=== PATIENT | male | born 1960 | race Caucasian/White ===

== ENCOUNTER 2017-07-24 05:32 | Emergency (ER) | payer SELFPAY ==
[2017-07-24] MEDS ORDERED: predniSONE 20 MG TAB ONE (07:26)
[2017-07-24] MEDS ORDERED: Azithromycin 250 MG TAB ONE (07:26)
--- NOTE | 2017-07-24 08:03 | RAD ---
RADIOGRAPH CHEST 2 VIEWS: HISTORY: A 57-year-old male with dyspnea and cough. FINDINGS: The thoracic aorta is tortuous and ectatic. There is no evidence of air space density, pneumothorax, or pulmonary edema. There is no cardiomegaly or pleural effusion. Inspiration is shallow. There i s a large amount of gas with air fluid level distending the stomach. IMPRESSION: 1) No acute cardiopulmonary findings. 2) Ectasia of thoracic aorta. 3) Gastric distention. maximiliano [] POS: [facility]
== END 2017-07-24 08:12 | disposition home or self-care (01) ==
LOC: ERS 05:32
DX: J40 Bronchitis, not specified as acute or chronic (principal); I10 Essential (primary) hypertension; F41.9 Anxiety disorder, unspecified; F17.210 Nicotine dependence, cigarettes, uncomplicated
CPT/HCPCS: 71046; 87081; 87430; 87804; 99406; J7506; J7620

== ENCOUNTER 2017-07-24 12:30 | Observation (INO) | payer SELFPAY ==
[~2017-07-24 12:30] MED LIST: ISOVUE-370 76%-LOCM 1 ML ONE
[2017-07-24 13:38] LABS: #Lymphocytes 0.5 thou/uL (1.20-3.40); #Monocytes 0.3 thou/uL (0.11-0.59); #Neutrophils 8.3 thou/uL (1.40-6.50); %Basophils 0.1 % (0.0-1.0); %Eosinophils 0.2 % (0.0-10.0); %Monocytes 3.5 % (0.0-10.0); %Neutrophils 91.3 % (42.0-75.0); Hemoglobin 15.9 g/dL (14.0-18.0); Mean Corpuscular HGB CONC 34.5 g/dL (32.0-36.0); Mean Corpuscular Hemoglobin 31.7 pg (27.0-31.0); Mean Platelet Volume 7.3 fL (7.4-10.4); Platelet Count 181 thou/uL (130-400); Red Blood Cell (RBC) Count 5.01 mill/uL (4.70-6.10); White Blood Cell (WBC) Count 9.1 thou/uL (4.8-10.8)
[2017-07-24 13:55] LABS: ALT (SGPT) 62 U/L (8-55); AST (SGOT) 29 U/L (5-34); Albumin 4.5 g/dL (3.5-5.0); Alkaline Phosphatase 75 U/L (40-150); Anion Gap 15 mmol/L (10-20); BUN (Urea Nitrogen) 8 mg/dL (8.4-25.7); Bilirubin, Total 0.7 mg/dL (0.2-1.2); Calc. Creatinine Clearance 0 mL/min (70-130); Calcium 10.4 mg/dL (7.8-10.44); Carbon Dioxide 24 mmol/L (22-29); Chloride 92 mmol/L (98-107); Estimated GFR-MDRD 71; Globulin 2.9 g/dL (2.4-3.5); Glucose 139 mg/dL (70-105); Potassium 3.2 mmol/L (3.5-5.1); Protein, Total 7.4 g/dL (6.0-8.3); Sodium 128 mmol/L (136-145)
[2017-07-24 14:20] LABS: CKMB 2.7 ng/mL (0-6.6); Troponin I Less than 0.010 ng/mL (< 0.028)
[2017-07-24] MEDS ORDERED: Lorazepam 2 MG/ML VIAL ONE (15:05)
[2017-07-24] MEDS ORDERED: Potassium Chloride 20 MEQ TAB ONE (17:37)
[2017-07-24 18:34] LABS: Troponin I 0.037 ng/mL (< 0.028)
--- NOTE | 2017-07-24 19:17 | CT ---
CTA OF THE CHEST CTA OF THE ABDOMEN AND PELVIS UTILIZING AORTIC DISSECTION PROTOCOL IV CONTRAST AND 3D REFORMATTED IMAGING: Indication: Shortness of breath, dyspnea. FINDINGS: No acute aortic stenosis, occlusion or aneurysmal formation is evident. There are mild vascular calci fications involving the abdominal aorta. The celiac, SMA, and bilateral renal arteries are widely pat ent. The PALOMO is widely patent. The aortic bifurcation is patent. Both common iliac arteries are paten t. External iliac arteries are patent. There is subsegmental volume loss seen scattered throughout both lungs. No confluent airspace opacity or pleural effusion is evident. No enlarged lymph nodes are evident. There is fatty infiltration of the liver. The pancreas, adrenal glands, and kidneys are normal appear ing. There is a hypodense lesion measuring 4.2 x 4.6 cm seen posterior to the rectum and anterior to the c occyx. There is no evidence of any osteolysis of the adjacent coccyx. There is some mass effect on th e posterior aspect of the rectum. There is scattered degenerative and osteoarthritic changes. IMPRESSION: 1. No acute stenosis, occlusion, or aneurysmal formation. 2. Scattered subsegmental atelectasis within the lungs. 3. Fatty liver. 4. Hypodense mass seen anterior to the coccyx and posterior to the rectum and adjacent to the pelvic musculature. This was likely present in 2013 but has enlarged. 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 Further evaluation with a follow up MRI of the pelvis with and without contrast is recommende d for further characterization. POS: [facility]
[2017-07-24] MEDS ORDERED: Guaifenesin DM 100-10/5 ML UDCUP PO PRN (19:35)
[2017-07-24] MEDS ORDERED: Acetaminophen 325 MG TAB PO PRN (19:35)
[2017-07-24] MEDS ORDERED: Senokot 8.6 MG TAB PO PRN (19:35)
--- NOTE | 2017-07-24 20:31 | HP ---
REASON FOR ADMISSION: COPD exacerbation. HISTORY OF PRESENTING ILLNESS: The patient gives history of having cough with expectoration from yes terday evening. He also has bilateral shoulder pain, but no chest pain as such. He has been having dry cough and has not been able to expectorate. He in fact came to the ER this morning and was evalu ated and was sent home on prednisone and Zithromax. On going home, the patient could not take nice d eep breaths, got concerned and in fact the shortness of breath got worse, hence came to emergency mary . He smokes 2-3 cigarettes a day. No complaints of palpitations or PND. He is currently sitting u p 45 degrees on the ER [facility]. PAST MEDICAL AND SURGICAL HISTORY: History of hypertension, anxiety disorder, left carpal tunnel sánchez linda. He had a stress test done 10 years back, which as far as he knows was negative. CURRENT MEDICATIONS: Prescribed, prednisone and Z-Patrick this morning, which he has not filled. Takes Toprol-XL 25 mg daily, triamterene 37.5 mg daily. ALLERGIES: CODEINE and PENICILLIN. PERSONAL HISTORY: Smokes 2-3 cigarettes a day. Does not abuse alcohol or drugs. 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 FAMILY HISTORY: He does not know much about his mom. Father is currently admitted at [facility]. He just came off the ventilator on which he was on it for nearly 10 days or s o. He also has heart disease. CODE STATUS: FULL. Power of attorney general is his . REVIEW OF SYSTEMS: The following complete review of systems was negative, unless otherwise mentioned in the HPI or below: Constitutional: Weight loss or gain, ability to conduct usual activities. Sk in: Rash, itching. Eyes: Double vision, pain. ENT/Mouth: Nose bleeding, neck stiffness, pain, te nderness. Cardiovascular: Palpitations, dyspnea on exertion, orthopnea. Respiratory: Shortness of breath, wheezing, cough, hemoptysis, fever or night sweats. Gastrointestinal: Poor appetite, abdom inal pain, heartburn, nausea, vomiting, constipation, or diarrhea. Genitourinary: Urgency, frequenc y, dysuria, nocturia. Musculoskeletal: Pain, swelling. Neurologic/Psychiatric: Anxiety, depressio n. Allergy/Immunologic: Skin rash, bleeding tendency. PHYSICAL EXAMINATION: GENERAL: The patient is a 57-year-old male who is currently not in any acute distress. VITAL SIGNS: Blood pressure 164/90, pulse 110 per minute, respiratory rate 24 per minute, temperatur e 98.6 degrees Fahrenheit, saturating 97% on room air. NECK: Supple, no elevated JVD. HEENT: Eyes, extraocular muscles intact. Pupils reacting to light. Oral cavity, mucous membranes a re dry. No exudates or congestion. CARDIOVASCULAR SYSTEM: S1, S2 heard. Regular rhythm. RESPIRATORY SYSTEM: Air entry 1+ bilateral. Scattered wheezes plus bilateral. ABDOMEN: Soft, bowel sounds heard. No tenderness, rigidity or guarding. EXTREMITIES: No peripheral edema or calf tenderness. VASCULAR SYSTEM: Peripheral pulses 1+ bilateral. No ischemic ulcerations or gangrene. CENTRAL NERVOUS SYSTEM: No gross focal deficit seen. The patient is alert, awake, oriented well. PSYCHIATRIC SYSTEM: The patient's mood is euthymic. No hallucinations or delusions. LABORATORY AND X-RAY FINDINGS: CT dissection protocol done shows no acute stenosis, occlusion, or an eurysm. 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 Troponin I first set was 0.0166, seco nd set was 0.03, CK-MB 2.7. Albumin is 4.5, BUN 8, creatinine 1.0. Sodium is 128, potassium 3.2, ch loride is 92, glucose is 139, ALT 62, AST 29, alkaline phosphatase 75. D-dimer is less than 0.27. H and H 15 and 46, platelet count 181, white count of 9, MCV is 92 with 91% neutrophils. EKG done avni ws sinus rhythm at 99 beats per minute. There are signs of LVH. CLINICAL IMPRESSION AND PLAN: The patient will be under observation on telemetry for acute chronic o bstructive pulmonary disease exacerbation, demand ischemia. We will place him on DuoNeb q.6 hourly, empiric Levaquin and Solu-Medrol 40 mg IV q.6 hourly. He will also be on a full dose aspirin and nit ro paste 1/2 inch q.8 hourly. Likely demand ischemia is due to his chronic obstructive pulmonary dis ease flareup. We will also obtain a viral PCR to make sure it is not influenza. He has had 2 visits to the ER this morning with worsening shortness of breath.
[2017-07-24] MEDS ORDERED: Acetaminophen 500 MG TAB ONE (22:16)
[2017-07-24 22:24] LABS: Troponin I 0.034 ng/mL (< 0.028)
[2017-07-24] MEDS ORDERED: Ondansetron HCl/PF 4 MG/2 ML Vial IVP PRN (22:30)
[2017-07-24] MEDS ORDERED: Ondansetron ODT 4 MG TAB SL PRN (22:30)
[2017-07-24] MEDS: Sodium Chloride 0.9% 1,000 ML IV SCH (23:07)
[2017-07-24] MEDS: Metoprolol Tartrate 25 MG TAB PO SCH (23:07)
[2017-07-24] MEDS: Famotidine 20 MG TAB PO SCH (23:07)
[2017-07-24] MEDS: Nitroglycerin 2% Ointment 1 INCH/1 GM Packet TOP SCH (23:09)
[2017-07-25 02:55] VITALS: BMI 34.1
[2017-07-25] MEDS: Nitroglycerin 2% Ointment 1 INCH/1 GM Packet TOP SCH (04:56)
[2017-07-25 05:57] LABS: #Lymphocytes 0.2 thou/uL (1.20-3.40); #Monocytes 0.4 thou/uL (0.11-0.59); #Neutrophils 6.7 thou/uL (1.40-6.50); %Basophils 0.4 % (0.0-1.0); %Eosinophils 0.1 % (0.0-10.0); %Lymphocytes 2.3 % (21.0-51.0); %Monocytes 5.8 % (0.0-10.0); %Neutrophils 91.3 % (42.0-75.0); Hemoglobin 15.5 g/dL (14.0-18.0); Mean Corpuscular HGB CONC 34.6 g/dL (32.0-36.0); Mean Corpuscular Hemoglobin 31.8 pg (27.0-31.0); Mean Corpuscular Volume 91.8 fl (80.0-94.0); Mean Platelet Volume 7.2 fL (7.4-10.4); Platelet Count 169 thou/uL (130-400); RBC Distribution Width 11.2 % (11.5-14.5); Red Blood Cell (RBC) Count 4.87 mill/uL (4.70-6.10); White Blood Cell (WBC) Count 7.3 thou/uL (4.8-10.8)
[2017-07-25 06:03] LABS: ALT (SGPT) 63 U/L (8-55); AST (SGOT) 37 U/L (5-34); Albumin 4.3 g/dL (3.5-5.0); Alkaline Phosphatase 73 U/L (40-150); Anion Gap 12 mmol/L (10-20); BUN (Urea Nitrogen) 10 mg/dL (8.4-25.7); Bilirubin, Total 0.6 mg/dL (0.2-1.2); Calc. Creatinine Clearance 121 mL/min (70-130); Calcium 9.8 mg/dL (7.8-10.44); Carbon Dioxide 25 mmol/L (22-29); Cardiac Risk 4.3 (Less than 4.5); Chloride 100 mmol/L (98-107); Cholesterol 215 mg/dl (< 200 Desired); Estimated GFR-MDRD 74; Globulin 2.9 g/dL (2.4-3.5); Glucose 134 mg/dL (70-105); HDL Cholesterol 50 mg/dL (>60 Neg Risk); LDL Cholesterol, Calculated 153 mg/dL; Potassium 4.1 mmol/L (3.5-5.1); Protein, Total 7.2 g/dL (6.0-8.3); Sodium 133 mmol/L (136-145); Triglycerides 62 mg/dL (Less than 150)
[2017-07-25] MEDS: Sodium Chloride 0.9% 1,000 ML IV SCH (08:27)
[2017-07-25] MEDS: Famotidine 20 MG TAB PO SCH (08:31)
[2017-07-25] MEDS: Metoprolol Tartrate 25 MG TAB PO SCH (08:31)
[2017-07-25 08:44] VITALS: BP 123/61; TEMP 98
[2017-07-25] MEDS ORDERED: Aspirin 325 MG TAB PO SCH (09:00)
[2017-07-25] MEDS ORDERED: Enoxaparin Sodium 40 MG/0.4 ML SYRINGE SC SCH (09:00)
--- NOTE | 2017-07-25 10:33 | PDOC.PN ---
- Subjective Encounter Start Date: 07/25/17 Encounter Start Time: 10:15 Subjective: No chest pain or SOB this AM on oxygen. Still coughing a little. - Objective Resuscitation Status: Resuscitation Status FULL:Full Resuscitation MAR Reviewed: Yes Vital Signs & Weight: Vital Signs (12 hours) Temp Pulse Resp BP Pulse Ox 07/25/17 08:00 98.0 F 104 H 16 123/61 92 L 07/25/17 06:31 95 07/25/17 06:28 101 H 20 95 07/25/17 05:49 98.5 F 106 H 22 H 07/25/17 04:07 98.5 F 106 H 22 H 125/76 93 L 07/25/17 00:35 96 07/25/17 00:33 97 18 96 Weight Weight 237 lb 11.2 oz I&O: 07/24/17 07/25/17 07/26/17 06:59 06:59 06:59 Output Total 600 Balance -600 Result Diagrams: 07/25/17 05:39 07/25/17 05:39 Phys Exam - Physical Examination Constitutional: NAD HEENT: moist MMs Respiratory: no wheezing, no rales, no rhonchi mild tightness to breath sounds Cardiovascular: RRR, no significant murmur Gastrointestinal: soft, positive bowel sounds Neurological: non-focal, moves all 4 limbs Psychiatric: normal affect, A&O x 3 Dx/Plan (1) COPD exacerbation Code(s): J44.1 - CHRONIC OBSTRUCTIVE PULMONARY DISEASE W (ACUTE) EXACERBATION Status: Acute Comment: improved, will try off O2 and can go home if tolerates. Has steroid and Zpack rxn already. Will give Rx for albuterol for his nebulizer. (2) Elevated troponin Code(s): R74.8 - ABNORMAL LEVELS OF OTHER SERUM ENZYMES Status: Acute Comment: indeterminate, no chest pain, likely demand ischemia from the COPD exacerbation, needs to f/u with disease case manager rn as an outpatient. - Plan cont current plan of care, continue antibiotics D/c O2 and home if tolerates * . - Discharge Day Encounter end time: 10:30
--- NOTE | 2017-07-25 12:09 | DIS ---
PRIMARY CARE PHYSICIAN: Dr. Sean Stout ADMISSION DIAGNOSIS: Chronic obstructive pulmonary disease exacerbation. DISCHARGE DIAGNOSES: 1. Chronic obstructive pulmonary disease exacerbation, improved. 2. Indeterminate troponins, likely demand ischemia. 3. Hypertension. 4. Anxiety disorder. PROCEDURES: CT dissection protocol showing no acute stenosis, occlusion, or aneurysmal formation. D id have some mild atelectasis within the lungs and a fatty liver. 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 PERTINENT LABORATORY: Troponin was initially negative, then it went up to 0.037 and 0.034. Brain na triuretic peptide negative. Total cholesterol was 215, LDL 153, triglycerides normal. SUMMARY OF HOSPITAL COURSE: This is a 57-year-old white male with known history of COPD who came in with a cough with worsening shortness of breath. He was seen in the emergency room and given a presc ription for prednisone and azithromycin and discharged. He had negative flu test at that time. He c mauricio in later in the day because he had continued shortness of breath. He then had a CT dissection pr otocol with the above results and indeterminate troponins. He was put in the hospital, was treated w ith oxygen, nebs and steroids. He is feeling a lot better today. He was given Levaquin and Solu-Med rol. Today we are weaning off his oxygen, he is currently 90% on room air. We will have him get up and walk and make sure his oxygen saturation does not drop and get significant dyspneic without it, i f not, he can be discharged home. DISCHARGE MANAGEMENT: Discharged home. He is to go ahead and fill his steroids and azithromycin prescriptions. I am sending him a prescrip tion for albuterol nebs, he has a nebulizer, but not the fluid at home, give him 3 mL nebs every 6 ho urs as needed for coughing, wheezing, shortness of breath, 60 nebs. He is to continue his trazodone 50 mg at night, Benadryl as needed, triamterene/hydrochlorothiazide 37.5/25 mg at night. Metoprolol succinate XL 25 mg at night and Prozac 20 mg at night. FOLLOWUP: Follow up with primary care physician in 7 days. The patient will need to see a cardiolog ist for evaluation for possible coronary artery disease due to his troponin leak with a COPD exacerba tion. He also had the cyst on his coccyx on CT that may have been there in 2002, but possibly larger . He may need an MRI so he needs to followup about that as well. ACTIVITIES: As tolerated. DIET: Healthy heart, low sodium diet.
[2017-07-26] MEDS ORDERED: predniSONE 20 MG TAB PO SCH (08:00)
--- NOTE | 2017-09-02 20:16 | EKG ---
Test Reason : Blood Pressure : / mmHG Vent. Rate : 113 BPM Atrial Rate : 113 BPM P-R Int : 178 ms QRS Dur : 102 ms QT Int : 356 ms P-R-T Axes : 014 -25 -08 degrees QTc Int : 488 ms Sinus tachycardia Minimal voltage criteria for LVH, may be normal variant Borderline ECG Confirmed by TO ERIK Valderrama ([id number]), television news video editor SHANTANU LI ([id number]) on 09/02/2017 8:16:46 PM Referred By: Confirmed By:ERIK RAGLAND M.D.
--- NOTE | 2017-09-02 20:17 | EKG ---
Test Reason : Blood Pressure : / mmHG Vent. Rate : 099 BPM Atrial Rate : 099 BPM P-R Int : 186 ms QRS Dur : 100 ms QT Int : 364 ms P-R-T Axes : 009 -23 -05 degrees QTc Int : 467 ms Normal sinus rhythm Minimal voltage criteria for LVH, may be normal variant Borderline ECG Confirmed by TO ERIK Valderrama ([id number]), commissioning editor SHANTANU LI ([id number]) on 09/02/2017 8:17:04 PM Referred By: Confirmed By:ERIK RAGLAND M.D.
== END 2017-07-25 12:12 | disposition home or self-care (01) ==
LOC: ERS 12:30 → 2SW 18:46 → ERHOLD 22:10 → 2SW 22:32
PROVIDERS: ADMIT Internal Medicine; ATTEND Internal Medicine
DX: J44.1 Chronic obstructive pulmonary disease with (acute) exacerbation (principal); I10 Essential (primary) hypertension; F41.9 Anxiety disorder, unspecified; M25.512 Pain in left shoulder; M25.511 Pain in right shoulder; F17.210 Nicotine dependence, cigarettes, uncomplicated; Z79.52 Long term (current) use of systemic steroids; Z79.899 Other long term (current) drug therapy; Z88.0 Allergy status to penicillin; Z88.5 Allergy status to narcotic agent; Z98.890 Other specified postprocedural states
CPT/HCPCS: 36415; 71275; 80053; 80061; 82553; 83880; 84443; 84484; 85025; 85379; 87633; 93005; 94640; 94760; 96361; 96365; 96372; 96374; 96375; 96376; 99406; A4216; G0378; J1650; J1956; J2060; J2920; J7620